=== PATIENT | female | born 2000 | race Caucasian/White ===

== ENCOUNTER 2020-08-14 12:33 | Outpatient (CLI) | payer OTHER ==
[2020-08-14 13:21] LABS: Basophils # (A) 0.1 k/uL (0-0.2); Basophils % (A) 1 %; Eosinophils # (A) 0.1 k/uL (0-0.7); Eosinophils % (A) 1 %; Lymphocytes # (A) 1.8 k/uL (1.0-4.8); Lymphocytes % (A) 14 %; MCH 31.4 pg (25.0-35.0); MCHC 34.1 g/dL (31.0-37.0); Mean Platelet Volume 7.3; Monocytes # (A) 0.6 k/uL (0-1.0); Monocytes % (A) 5 %; Neutrophils # (A) 10.5 k/uL (1.3-7.7); Neutrophils % (A) 79 %; Platelet Count 323 k/uL (150-450); Poikilocytosis Slight; RDW 14.7 % (11.5-15.5); WBC 13.3 k/uL (3.8-10.6)
[2020-08-14 13:29] LABS: Appearance,Urine Cloudy (Clear); Bacteria,Urine Rare /hpf; Bilirubin,Urine Negative (Negative); Blood,Urine Negative (Negative); Color,Urine Light Yellow; Glucose,Urine (UA) Negative (Negative); Ketones,Urine Negative (Negative); Leukocyte Esterase,Urine Large (Negative); Mucus,Urine Rare /hpf; Nitrite,Urine Negative (Negative); Protein,Urine Trace (Negative); RBC,Urine 3 /hpf (0-5); Specific Gravity,Urine 1.009 (1.001-1.035); Squamous Epithelial Cell,Urine 5 /hpf (0-4); Urobilinogen,Urine <2.0 mg/dL (<2.0); WBC,Urine 17 /hpf (0-5)
[2020-08-14 13:42] LABS: ALT 14 U/L (4-34); AST 21 U/L (14-36); African American GFR (CKD) >90 (>60 ml/min/1.73 sqM); Blood Urea Nitrogen 5 mg/dL (7-17); LDH 436 U/L (313-618); Non-African American GFR(CKD) >90 (>60 ml/min/1.73 sqM); Uric Acid 2.9 mg/dL (3.7-7.4)
[2020-08-14 13:44] LABS: Creatinine,Urine Random 49.1 mg/dL; Protein/Creatinine Ratio,Urine 0.754
--- NOTE | 2020-08-28 08:54 | P.MSEPDOC ---
Presenting Problems - Arrival Data Date of Arrival on Unit: 08/14/20 Time of Arrival on Unit: 12:40 Mode of Transport: Ambulatory Disposition - Disposition OB Disposition: Discharge to home Discharge Date: 08/14/20 Discharge Time: 14:30 I agree with the RN Medical Screening Exam: Yes Case reviewed; plan agreed upon as documented in EMR&OBIX.: Yes Diagnosis: GESTATIONAL HTN W/O SIGNIFICANT PROTEINURIA, THIRD TRIMESTER
== END 2020-08-14 14:20 | disposition home or self-care (01) ==
LOC: FBPOP 12:33
PROVIDERS: ATTEND Obstetrics & Gynecology
DX: O13.3 Gestational [pregnancy-induced] hypertension without significant proteinuria, third trimester (principal); Z3A.00 Weeks of gestation of pregnancy not specified
CPT/HCPCS: 59025; 82570; 84156; 82565; 83615; 84450; 84460; 84520; 84550; 85025; 81001; 87086; G0463; 99215

== ENCOUNTER 2020-10-02 16:59 | Outpatient (CLI) | payer OTHER ==
[2020-10-02 17:48] VITALS: BP 124/82; PULSE 120; RESP 18; TEMP 98.6
--- NOTE | 2020-10-07 17:24 | P.MSEPDOC ---
Presenting Problems - Arrival Data Date of Arrival on Unit: 10/02/20 Time of Arrival on Unit: 17:04 Mode of Transport: Ambulatory - Complaint OB-Reason for Admission/Chief Complaint: Decreased Movement Comment: Pt here complains of decreased movement since this am. Medical History - Information : 1 Para: 0 Term: 0 : 0 Abortions: Spontaneous or Elective: 0 Number of Living Children: 0 - Gestational Age Gestational Age by BHAKTI (wks/days): 36 Weeks and 6 Days - History Comment: Has been watching blood pressure in office Review of Systems - Review of Systems Constitutional: No problems Breast: No problems ENT: No problems Cardiovascular: No problems Respiratory: No problems Gastrointestinal: No problems Genitourinary: No problems Musculoskeletal: No problems Neurological: No problems Skin: No problems Vital Signs - Temperature Temperature: 98.6 F Temperature Source: Oral - Pulse Pulse Oximetery Pulse Rate: 120 Pulse Assessment Method: Automatic Cuff - Respirations Respiratory Rate: 18 Oxygen Delivery Method: Room Air - Blood Pressure Right Arm Blood Pressure: 124/82 Blood Pressure Mean: 96 Blood Pressure Source: Automatic Cuff Medical Screen Scoring (Pre) - Cervical Exam Dilation: Exam Deferred Effacement: Exam Deferred - Uterine Contractions Frequency: N/A Duration: N/A Intensity: N/A - Maternal Vital Signs Maternal Temperature: N/A Maternal Blood Pressure: N/A Signs of Preeclampsia: N/A Maternal Respirations: N/A - Maternal Trauma Maternal Trauma: N/A - Assessment - Baby A Heart Rate - NICHD Category: Category I (Normal) = 0 NST: Reactive - Total Score - Baby A Total Score - Baby A: 0 - Total Score - Baby B Total Score - Baby B: 0 - Total Score - Baby C Total Score - Baby C: 0 - Level of Risk - Baby A Level of Risk - Baby A: Low (0-5) - Level of Risk - Baby B Level of Risk - Baby B: Low (0-5) - Level of Risk - Baby C Level of Risk - Baby C: Low (0-5) - Pain Assessment Pain Scale Used: Numeric (1 - 10) Pain Intensity: 0 Physician Notification (Pre) - Physician Notified Physician Notified Date: 10/02/20 Physician Notified Time: 17:25 New Order Received: Yes - Notification Comment Comment: Discharge Home Disposition - Disposition OB Disposition: Discharge to home, Written follow up instructions reviewed Discharge Date: 10/02/20 Discharge Time: 17:48 I agree with the RN Medical Screening Exam: Yes Case reviewed; plan agreed upon as documented in EMR&OBIX.: Yes Diagnosis: DECREASED MOVEMENTS, THIRD TRIMESTER, FETUS 1
== END 2020-10-02 17:45 | disposition home or self-care (01) ==
LOC: FBPOP 16:59
PROVIDERS: ATTEND Obstetrics & Gynecology
DX: O36.8130 Decreased fetal movements, third trimester, not applicable or unspecified (principal); Z3A.36 36 weeks gestation of pregnancy
CPT/HCPCS: 59025; G0463; 99213

== ENCOUNTER 2020-10-21 05:49 | Inpatient (IN) | payer OTHER ==
[2020-10-17 13:30] VITALS: BMI 38.0
--- NOTE | 2020-10-20 21:16 | P.HPOB ---
History of Present Illness H&P Date: 10/20/20 Chief Complaint: macrosomia This is a 20 y.o. female, 1, para 0, with an estimated date of confinement of 10/23/2020, estimated gestational age of 39-5/7 weeks, who presents for primary section due to macrosomia on ultrasound with estimated weight greater than 90th percentile. She has good movement and irregular contractions. course has been otherwise uncomplicated. She transferred care to [facility] from [place] at 30 weeks. labs: Hemoglobin-13.2 Blood type-O+ Antibody screen-neg Hepatitis B surface antigen-neg RPR-NR HIV-NR Nkjlykibv-jlywhijm-15/2020, MORGAN 06/2020-neg GC-neg 1 hr. GTT-129 GBS-neg OB Hx: . [employer] Hx: Hx chlamydia treated earlier in . Social Hx: . Unemployed. Review of Systems Constitutional: Denies chills, Denies fever Eyes: denies blurred vision, denies pain Ears, nose, mouth and throat: Denies headache, Denies sore throat Cardiovascular: Denies chest pain, Denies shortness of breath Respiratory: Denies cough Gastrointestinal: Reports abdominal pain (irreg. contractions) Genitourinary: Reports pelvic pain, Reports Musculoskeletal: Reports low back pain Musculoskeletal: bilateral: ankle swelling Integumentary: Denies pruritus, Denies rash Neurological: Denies numbness, Denies weakness Psychiatric: Denies anxiety, Denies depression Past Medical History Past Medical History: GERD/Reflux History of Any Multi-Drug Resistant Organisms: None Reported Past Surgical History: No Surgical Hx Reported Additional Past Anesthesia/Blood Transfusion Reaction / Comment(s): no anesthesia hx Past Psychological History: No Psychological Hx Reported Smoking Status: Never smoker Past Alcohol Use History: None Reported Past Drug Use History: None Reported - Past Family History Mother Family Medical History: No Reported History Medications and Allergies Home Medications Medication Instructions Recorded Confirmed Type Pnv No.95/Ferrous Fum/Folic AC 1 each PO DAILY 08/14/20 10/17/20 History [ Multivitamin Tablet] Cetirizine HCl [Zyrtec] 10 mg PO DAILY PRN 10/17/20 10/17/20 History Allergies Allergy/AdvReac Type Severity Reaction Status Date / Time shellfish derived [Shellfish] Allergy Swelling Verified 10/21/20 06:48 Lip, Throat Itchy. Exam Osteopathic Statement: *. No significant issues noted on an osteopathic structural exam other than those noted in the History and Physical/Consult. HEENT: within normal limits Heart: regular rate and rhythm Lungs: clear to auscultation bilaterally Abdomen: , fundal height 42.5 cm heart tones: 140's by doppler Extremities: neg. Francine's Results Result Diagrams: 10/21/20 06:07 Assessment and Plan (1) 39 weeks gestation of Current Visit: No Status: Acute Code(s): Z3A.39 - 39 WEEKS GESTATION OF SNOMED Code(s): 99845365 (2) macrosomia Current Visit: No Status: Acute Code(s): O36.60X0 - MATERNAL CARE FOR EXCESS GROWTH, UNSP TRIMESTER, UNSP SNOMED Code(s): 24564737 Plan: Proceed with primary low transverse section. I have discussed the risks, benefits, and alternative therapies for the above- mentioned procedure and for both sedation/anesthesia as well as necessary blood products administration, if indicated, as they pertain to this patient. The patient has indicated her understanding and acceptance of the risks and procedures discussed.
[2020-10-21] MEDS ORDERED: CITRIC ACID-SODIUM CITRATE 15 ML CUP PO ONE (05:54)
[2020-10-21] MEDS ORDERED: LIDOCAINE 1% (10MG/ML) FOR IV START INTRADERMA PRN (05:54)
[2020-10-21] MEDS ORDERED: LORATADINE 10 MG TAB PO PRN (05:54)
[2020-10-21 06:22] LABS: Anisocytosis Slight; Basophils % (A) 0 %; Eosinophils # (A) 0.2 k/uL (0-0.7); Eosinophils % (A) 1 %; HCT 32.4 % (34.0-46.0); HGB 10.8 gm/dL (11.4-16.0); Hypochromasia Slight; Lymphocytes # (A) 1.7 k/uL (1.0-4.8); Lymphocytes % (A) 14 %; MCH 28.1 pg (25.0-35.0); MCHC 33.3 g/dL (31.0-37.0); MCV 84.4 fL (80.0-100.0); Mean Platelet Volume 7.8; Monocytes # (A) 0.6 k/uL (0-1.0); Monocytes % (A) 5 %; Neutrophils # (A) 9.8 k/uL (1.3-7.7); Neutrophils % (A) 79 %; Platelet Count 398 k/uL (150-450); Poikilocytosis Slight; RBC 3.84 m/uL (3.80-5.40); RDW 17.2 % (11.5-15.5); WBC 12.4 k/uL (3.8-10.6)
[2020-10-21] MEDS: LACTATED RINGERS 1,000 ML IV ONE ×2 (06:31→11:24)
[2020-10-21] MEDS ORDERED: KETOROLAC 15 MG/ML 1 ML VIAL ONE (07:56)
[2020-10-21] MEDS ORDERED: ONDANSETRON 4 MG/2 ML VIAL ONE (07:56)
[2020-10-21] MEDS ORDERED: MORPHINE SULFATE (PF) 0.3 MG/0.3 ML SYR ONE (07:56)
[2020-10-21] MEDS ORDERED: PHENYLEPHRINE-0.9% NACL SYG 1,000 MCG/10 ML SYRINGE ONE (07:56)
--- NOTE | 2020-10-21 08:52 | P.OP ---
Date of Procedure: 10/21/20 Preoperative Diagnosis: 1. Intrauterine at 39-5/7 weeks. 2. macrosomia. Postoperative Diagnosis: Same Procedure(s) Performed: Primary low transverse section Anesthesia: spinal (Duramorph) Surgeon: Cathy Mays Slagger #1: Walker Stephen Estimated Blood Loss (ml): 750 Pathology: none sent Condition: stable Disposition: floor Indications for Procedure: This is a 20-year-old female 1 para 0 at 39-5/7 weeks who presents for primary low transverse section due to macrosomia. I have discussed the risks, benefits, and alternative therapies for the above- mentioned procedure and for both sedation/anesthesia as well as necessary blood products administration, if indicated, as they pertain to this patient. The patient has indicated her understanding and acceptance of the risks and procedures discussed. Operative Findings: A viable female is noted in the vertex presentation with scores of 8 at 1 minute and 9 at 5 minutes and infant weight of 9 lbs. 5 oz. Normal uterus tubes and ovaries are noted. Description of Procedure: The patient is taken to the operating room where she is placed in the dorsal supine position with leftward tilt after spinal Duramorph anesthesia is given. She is prepped and draped in the normal sterile fashion. Skin was tested and found to be adequately anesthetized. A Pfannenstiel skin incision was made with a scalpel. A second knife was used to carry the incision down to the underlying layer of fascia. The fascia was nicked in the midline with a scalpel and then extended laterally bilaterally with Miller scissors. The anterior lip of the fascia was grasped with 2 Marko clamps and then dissected off the underlying rectus muscle in the midline with Miller scissors. The inferior aspect of the fa scial incision was grasped with 2 Marko clamps and dissected off the underlying rectus muscle and the midline with Miller scissors. Next the peritoneum layer was tented up with 2 hemostats and then entered sharply with the scalpel. The incision is extended superiorly and inferiorly with Metzenbaum scissors. Next a DeLee retractor is placed. The vesicouterine peritoneum is entered sharply with Metzenbaum scissors and extended laterally bilaterally with Metzenbaum scissors and then the bladder flap is pushed inferiorly. The lower uterine segment is incised in transverse fashion with the scalpel and then bluntly entered with a hemostat. Clear fluid is noted. The incision was then extended laterally bilaterally with 2 fingers. Next the infant's head is delivered through the incision. Nose and mouth are bulb suctioned. The remainder of the infant is easily delivered and placed on mother's abdomen. Cord is clamped and cut. is taken to warmer by nursing staff. Uterine fundus is gently massaged and placenta is delivered manually. Uterus is exteriorized and cleared of all clots and debris. Uterine incision is closed with 0 Vicryl suture in a running locked fashion. A second layer of 0 Vicryl suture is used in a running fashion for hemostasis. Once adequate hemostasis as assured, the vesicouterine peritoneum is reapproximated with 2-0 Vicryl suture in a running fashion. Shortly after repair of the uterus incision, it was noted there was some bleeding from the fimbriated end of the left fallopian tube. Cautery was used to cauterize the one blood vessel that was pumping. There was still noted to be oozing and therefore one stitch of 3-0 Vicryl suture was placed in interrupted stitch for hemostasis. Good hemostasis was noted at this point. Posterior cul-de-sac is suctioned of all clots and debris. Uterus is returned to the abdomen. Incision is noted to be hemostatic. The left fallopian tube was noted to be hemostatic. Peritoneal layer is closed with 0 Vicryl suture in a running fashion. Muscle layer is reapproximated with 0 Vicryl suture in interrupted fashion. Fascia layer is then closed with 0 PDS suture with 2 sutures meeting in the midline and the knots buried in either side and in the midline. The subcutaneous tissue was then closed with 2-0 Vicryl suture. Skin layer was then closed with rain. All sponge and needle counts are correct. The patient is taken to recovery room in stable condition.
[2020-10-21] MEDS ORDERED: OXYTOCIN 30 UNITS/500 ML NS 30 UNIT in SALINE 1 500ML.BAG IV SCH (09:00)
[2020-10-21] MEDS: LACTATED RINGERS 1,000 ML IV SCH ×2 (11:26→19:39)
[2020-10-21] MEDS ORDERED: diphenhydrAMINE 50 MG/ML 1 ML VIAL IVP PRN ×2 (12:34)
[2020-10-21] MEDS ORDERED: ONDANSETRON 4 MG/2 ML VIAL IVP PRN (12:34)
[2020-10-21] MEDS ORDERED: diphenhydrAMINE 50 MG CAP PO PRN (12:34)
[2020-10-21] MEDS ORDERED: ZOLPIDEM 5 MG TAB PO PRN (12:34)
[2020-10-21] MEDS ORDERED: diphenhydrAMINE 25 MG CAP PO PRN (12:34)
[2020-10-21] MEDS ORDERED: NALOXONE 0.4 MG/ML 1 ML VIAL IV PRN (12:34)
[2020-10-21] MEDS ORDERED: METOCLOPRAMIDE 5 MG/ML 2 ML VIAL IVP PRN (12:34)
[2020-10-21] MEDS: ACETAMINOPHEN TAB 500 MG TAB PO SCH ×2 (14:00→19:38)
[2020-10-21] MEDS: KETOROLAC 15 MG/ML 1 ML VIAL IVP SCH (17:55)
[2020-10-21] MEDS ORDERED: IBUPROFEN 600 MG TAB PO SCH (18:34)
[2020-10-21] MEDS: SENNOSIDES-DOCUSATE SODIUM 1 EACH TAB PO SCH (19:39)
[2020-10-22] MEDS: KETOROLAC 15 MG/ML 1 ML VIAL IVP SCH ×2 (00:55→06:43)
[2020-10-22] MEDS: ACETAMINOPHEN TAB 500 MG TAB PO SCH ×3 (02:07→18:30)
[2020-10-22] MEDS: LACTATED RINGERS 1,000 ML IV SCH ×3 (04:29→20:40)
--- NOTE | 2020-10-22 07:12 | P.PN ---
Progress Note - Text Progress Note Date: 10/22/20 Postoperative day 1 status post section under spinal anesthesia, and intrathecal morphine given for postoperative analgesia, patient doing well, there is no anesthesia related complications Patient had no headache, vital signs stable Assessment and plan = postop day 1 status post , doing well there is no anesthesia related complication
[2020-10-22] MEDS ORDERED: IBUPROFEN 200 MG TAB PO PRN (08:46)
[2020-10-22] MEDS ORDERED: HYDROcodone/APAP 7.5-325MG 1 EACH TAB PO PRN (08:47)
[2020-10-22] MEDS ORDERED: HYDROcodone/APAP 5-325MG 1 EACH TAB PO PRN (08:47)
--- NOTE | 2020-10-22 08:50 | P.PNOBGPC ---
Subjective - Subjective Principal diagnosis: Status post primary section postoperative day #1 Interval history: Patient is doing well. She is ambulating. She is not passing flatus or bowel movement yet. She is urinating without difficulty. Her pain is well controlled right now. She is tolerating liquid diet. Lochia has been minimal. She is breast-feeding. Patient reports: Reports appetite normal, Reports voiding normally, Reports pain well controlled, Reports ambulating normally : doing well, nursing well Objective - Vital Signs Latest vital signs: Vital Signs Temp Pulse Resp BP BP Pulse Ox 10/22/20 08:00 97.8 F 85 16 110/74 100 10/22/20 04:00 98.0 F 86 16 112/83 10/22/20 00:00 98.9 F 102 H 16 119/79 10/21/20 20:00 98.1 F 94 16 107/61 10/21/20 15:03 97.5 F L 102 H 17 129/76 98 10/21/20 12:18 98.1 F 113 H 16 117/75 10/21/20 10:55 81 16 109/55 97 10/21/20 10:29 97.3 F L 76 16 115/66 98 10/21/20 09:59 85 16 117/59 98 10/21/20 09:44 97.4 F L 83 16 109/59 98 10/21/20 09:29 85 16 122/56 98 10/21/20 09:13 97.1 F L 86 16 113/58 98 10/21/20 08:59 89 16 106/60 98 Intake and Output 10/21/20 10/22/20 10/22/20 22:59 06:59 14:59 Output Total 700 700 800 Balance -700 -700 -800 Output: Urine 700 700 800 Uretheral (Christopher) 700 700 - Exam Lungs: bilateral: normal Chest: Normal S1, Normal S2 Extremities: Present: normal Abdomen: Present: normal appearance, soft (Faint bowel sounds 4), distention (Slight). Absent: tenderness Incision: Present: normal, dry, intact. Absent: erythematous Uterus: Present: normal, firm. Absent: tenderness Assessment and Plan Assessment: Status post primary low transverse section postoperative day #1 (1) 39 weeks gestation of Current Visit: No Status: Acute Code(s): Z3A.39 - 39 WEEKS GESTATION OF SNOMED Code(s): 55482411 (2) macrosomia Current Visit: No Status: Acute Code(s): O36.60X0 - MATERNAL CARE FOR EXCESS GROWTH, UNSP TRIMESTER, UNSP SNOMED Code(s): 28003969 Plan: Continue with postoperative care today. Will advance diet as tolerated after flatus. Will switch to oral pain medications today. Patient is encouraged to ambulate and may shower.
[2020-10-22 09:05] LABS: Anisocytosis Slight; Basophils % (A) 0 %; Eosinophils # (A) 0.1 k/uL (0-0.7); Eosinophils % (A) 1 %; HCT 26.8 % (34.0-46.0); Hypochromasia Slight; Lymphocytes # (A) 1.1 k/uL (1.0-4.8); Lymphocytes % (A) 11 %; MCH 28.8 pg (25.0-35.0); MCV 84.7 fL (80.0-100.0); Mean Platelet Volume 7.8; Monocytes # (A) 0.6 k/uL (0-1.0); Monocytes % (A) 6 %; Neutrophils # (A) 8.4 k/uL (1.3-7.7); Neutrophils % (A) 81 %; Platelet Count 322 k/uL (150-450); Poikilocytosis Slight; RBC 3.17 m/uL (3.80-5.40); RDW 17.4 % (11.5-15.5); WBC 10.4 k/uL (3.8-10.6)
[2020-10-22 09:10] LABS: HGB 9.1 gm/dL (11.4-16.0)
[2020-10-22] MEDS: SENNOSIDES-DOCUSATE SODIUM 1 EACH TAB PO SCH ×2 (12:03→20:09)
[2020-10-23] MEDS: ACETAMINOPHEN TAB 500 MG TAB PO SCH ×2 (00:06→09:17)
[2020-10-23] MEDS ORDERED: IBUPROFEN 600 MG TAB PO PRN (03:04)
--- NOTE | 2020-10-23 08:55 | P.DS ---
Providers Date of admission: 10/21/20 05:49 Expected date of discharge: 10/23/20 Attending physician: Cathy Mays Primary care physician: Stated None - Discharge Diagnosis(es) (1) 39 weeks gestation of Current Visit: No Status: Acute (2) macrosomia Current Visit: No Status: Acute Hospital Course: This is a 20-year-old female 1 para 0 at 39-5/7 weeks who presented for scheduled primary low transverse section for macrosomia. She underwent the above-noted procedure on 10/21/2020 and delivered a viable female infant with scores of 8 at 1 minute and 9 at 5 minutes and infant weight of 9 lbs. 5 oz. Her postoperative and course have been uncomplicated. She is passing flatus and bowel movement and urinating without difficulty. Her lochia is minimal. She is breast-feeding. Vital signs are stable. Abdomen is soft with fundus firm and nontender. Incision is clean dry and intact with rain in place. Extremities show negative Homans. Impression is status post primary low transverse section postoperative day #2. Plan is to discharge home today. Routine instructions and postoperative instructions are given. She will be given a prescription for ibuprofen for pain control. She declines a need for any narcotics. She has a breast pump at home. She is advised to follow up in the office in approximately 2 weeks for a postoperative check and in 6 weeks for check. She is advised to call the office if she has any further questions or concerns prior to her appointment time. Procedures: Primary low transverse section on 10/21/2020 Patient Condition at Discharge: Stable Plan - Discharge Summary Discharge Rx Participant: Yes New Discharge Prescriptions: New Ibuprofen [Motrin] 600 mg PO Q6HR PRN #60 tab PRN Reason: Pain Continue Pnv No.95/Ferrous Fum/Folic AC [ Multivitamin Tablet] 1 each PO DAILY Cetirizine HCl [Zyrtec] 10 mg PO DAILY PRN PRN Reason: Allergy Symptoms Discharge Medication List Pnv No.95/Ferrous Fum/Folic AC [ Multivitamin Tablet] 1 each PO DAILY 08/14/20 [History] Cetirizine HCl [Zyrtec] 10 mg PO DAILY PRN 10/17/20 [History] Ibuprofen [Motrin] 600 mg PO Q6HR PRN #60 tab 10/23/20 [Rx] Follow up Appointment(s)/Referral(s): Cathy Mays DO [Doctor of Osteopathic Medicine] - 2 Weeks Activity/Diet/Wound Care/Special Instructions: Instructions 1. Do not begin any exercise program for 3 weeks. 2. Do not resume sexual relations for 3 weeks or longer if uncomfortable. 3. You may take tub baths or showers at any time. 4. You may use tampons if desired after 3 weeks. 5. Keep the area of episiotomy (stitches) clean and dry. 6. If you are not nursing, wear a good fitting, supportive bra during the day and limit fluid intake for at least 1 week to prevent breast engorgement. 7. Call the office, [phone], within the next week to make appointment for your 6 week checkup if it has not already been made. 8. Report any of the following occurrences to the doctor promptly: a. Heavy, excessive bleeding b. Chills, fever c. Burning or frequency of urination d. Pain or redness and breasts if nursing e. Increasing pain or swelling in episiotomy (stitches). In addition to the above instructions, the following additional should be followed: 1. No heavy lifting or straining (exercising) until after 6 week checkup. 2. Keep abdominal incision clean and dry: You may wear a dressing if more comfortable. 3. Make office appointment for 10 days after going home or as instructed by her doctor. Discharge Disposition: HOME SELF-CARE
[2020-10-23] MEDS: SENNOSIDES-DOCUSATE SODIUM 1 EACH TAB PO SCH (09:16)
[2020-10-23 09:39] VITALS: BP 130/85; PULSE 116; RESP 17; TEMP 97.8
== END 2020-10-23 11:05 | disposition home or self-care (01) | DRG 788 ==
LOC: 4FBP 05:49
PROVIDERS: ADMIT Obstetrics & Gynecology; ATTEND Obstetrics & Gynecology
PROC: 10D00Z1 Extraction of Products of Conception, Low, Open Approach (ICD-10-PCS; principal; 2020-10-21 08:00)
DX: O36.63X0 Maternal care for excessive fetal growth, third trimester, not applicable or unspecified (principal); O99.62 Diseases of the digestive system complicating childbirth; K21.9 Gastro-esophageal reflux disease without esophagitis; Z37.0 Single live birth; Z3A.39 39 weeks gestation of pregnancy; Z79.899 Other long term (current) drug therapy; Z98.818 Other dental procedure status
CPT/HCPCS: 85025; 86850; 86900; 86901

== ENCOUNTER 2020-10-26 00:27 | Emergency (ER) | payer OTHER ==
[2020-10-26] MEDS ORDERED: SODIUM CHLORIDE 0.9% 1,000 ML IV ONE (01:34)
[2020-10-26 01:57] LABS: Anisocytosis Slight; HCT 28.5 % (34.0-46.0); Hypochromasia Slight; MCH 27.2 pg (25.0-35.0); MCHC 31.4 g/dL (31.0-37.0); MCV 86.4 fL (80.0-100.0); Mean Platelet Volume 8.3; Platelet Count 524 k/uL (150-450); Poikilocytosis Slight; RDW 18.2 % (11.5-15.5); WBC 14.5 k/uL (3.8-10.6)
[2020-10-26 02:06] LABS: ALT 27 U/L (4-34); AST 55 U/L (14-36); African American GFR (CKD) >90 (>60 ml/min/1.73 sqM); Albumin 3.3 g/dL (3.5-5.0); Alkaline Phosphatase 199 U/L (38-126); Anion Gap 7 mmol/L; Blood Urea Nitrogen 8 mg/dL (7-17); Carbon Dioxide 20 mmol/L (22-30); Chloride 110 mmol/L (98-107); Glucose 97 mg/dL (74-99); LDH 1133 U/L (313-618); Magnesium 1.8 mg/dL (1.6-2.3); Non-African American GFR(CKD) >90 (>60 ml/min/1.73 sqM); Potassium 4.8 mmol/L (3.5-5.1); Sodium 137 mmol/L (137-145); Total Bilirubin 0.7 mg/dL (0.2-1.3); Total Protein 6.3 g/dL (6.3-8.2); Uric Acid 4.3 mg/dL (3.7-7.4)
[2020-10-26 02:09] LABS: Appearance,Urine Cloudy (Clear); Bacteria,Urine Rare /hpf; Bilirubin,Urine Negative (Negative); Blood,Urine Large (Negative); Color,Urine Light Yellow; Glucose,Urine (UA) Negative (Negative); Ketones,Urine Negative (Negative); Leukocyte Esterase,Urine Large (Negative); Mucus,Urine Rare /hpf; Nitrite,Urine Negative (Negative); PH, Urine 5.5 (5.0-8.0); Protein,Urine Trace (Negative); RBC,Urine >182 /hpf (0-5); Specific Gravity,Urine 1.005 (1.001-1.035); Squamous Epithelial Cell,Urine 3 /hpf (0-4); Urobilinogen,Urine <2.0 mg/dL (<2.0); WBC,Urine 136 /hpf (0-5)
[2020-10-26 02:27] LABS: Band Neutrophils % 1 %; Eosinophils # (M) 0.58 k/uL (0-0.7); Lymphocytes # (M) 1.31 k/uL (1.0-4.8); Monocytes # (M) 1.02 k/uL (0-1.0); Neutrophils % (M) 79 %; Nucleated Red Blood Cells 0 /100 WBC (0-0); Polychromasia Present; Total Cells Counted 100
--- NOTE | 2020-10-26 02:41 | XR ---
EXAM: XR Chest, 2 Views CLINICAL HISTORY: Edema TECHNIQUE: Frontal and lateral views of the chest. COMPARISON: No relevant prior studies available. FINDINGS: Lungs: Unremarkable. No infiltration, atelectasis or mass density. Pleural space: Unremarkable. No pneumothorax. No pleural fluid. Heart: Unremarkable. No cardiomegaly. Mediastinum: Unremarkable. Bones/joints: Unremarkable. No acute abnormalities. IMPRESSION: Negative chest x-rays.
[2020-10-26 03:14] VITALS: PULSE 104; RESP 16
--- NOTE | 2020-10-26 04:02 | ED ---
Recheck HPI - General Chief Complaint: Recheck/Abnormal Lab/Rx Stated Complaint: High blood pressure, post-op Time Seen by Provider: 10/26/20 01:23 Source: patient Mode of arrival: ambulatory Limitations: no limitations - History of Present Illness Initial Comments: 20-year-old female patient who is 4 days presents to the emergency department today for evaluation of elevated blood pressures and swelling to the lower extremities. She delivered her first baby via on 10/22/20. States that she woke from a nap this afternoon and had a headache her mother suggested she should check her blood pressures. States the blood pressures are around 130s systolic. States she has been having swelling to the legs for the last couple of weeks. States it has not improved at all since delivering. Denies any issues with blood pressure during her . She states that her incision is healing well denies any drainage. States she is having some vaginal bleeding and states his little heavier today. Denies any foul odor. Denies fever or ch ills. States her headache has resolved. She is eating and drinking without difficulty. Patient denies any recent rash, cough, shortness of breath, chest pain, abdominal pain, nausea, vomiting, diarrhea, constipation, back pain, numbness, tingling, dizziness, weakness, hematuria, dysuria, urinary urgency, urinary frequency, visual changes, or any other complaints. - Related Data Home Medications Medication Instructions Recorded Confirmed Pnv No.95/Ferrous Fum/Folic AC 1 each PO DAILY 08/14/20 10/17/20 [ Multivitamin Tablet] Cetirizine HCl [Zyrtec] 10 mg PO DAILY PRN 10/17/20 10/17/20 Previous Rx's Medication Instructions Recorded Ibuprofen [Motrin] 600 mg PO Q6HR PRN #60 tab 10/23/20 Allergies Allergy/AdvReac Type Severity Reaction Status Date / Time shellfish derived [Shellfish] Allergy Swelling Verified 10/26/20 01:19 Lip, Throat Itchy. Review of Systems ROS Statement: Those systems with pertinent positive or pertinent negative responses have been documented in the HPI. ROS Other: All systems not noted in ROS Statement are negative. Past Medical History Past Medical History: GERD/Reflux Additional Past Medical History / Comment(s): -LMP January 2020. History of Any Multi-Drug Resistant Organisms: None Reported Past Surgical History: Section Additional Past Surgical History / Comment(s): [place] teeth 2016 Past Anesthesia/Blood Transfusion Reactions: No Reported Reaction Additional Past Anesthesia/Blood Transfusion Reaction / Comment(s): no anesthesia hx Past Psychological History: No Psychological Hx Reported Smoking Status: Never smoker Past Alcohol Use History: None Reported Past Drug Use History: None Reported - Past Family History Mother Family Medical History: No Reported History General Exam Limitations: no limitations General appearance: alert, in no apparent distress, other (This is a well- developed, well-nourished adult female patient in no acute distress. Vital signs upon presentation are temperature 98.7F, pulse 128, respirations 22, blood pressure 139/83, pulse ox 98% on room air.) Eye exam: Present: normal appearance, PERRL, EOMI. Absent: scleral icterus, conjunctival injection, periorbital swelling ENT exam: Present: normal exam, normal oropharynx, mucous membranes moist Respiratory exam: Present: normal lung sounds bilaterally. Absent: respiratory distress, wheezes, rales, rhonchi, stridor Cardiovascular Exam: Present: normal rhythm, tachycardia, normal heart sounds. Absent: systolic murmur, diastolic murmur, rubs, gallop, clicks GI/Abdominal exam: Present: soft, normal bowel sounds, other (approximated lower abdominal incision. No surrounding erythema, no ). Absent: distended, tenderness, guarding, rebound, rigid Extremities exam: Present: full ROM, normal capillary refill, pedal edema (3+ pitting edema). Absent: tenderness, joint swelling, calf tenderness Neurological exam: Present: alert, oriented X3, CN II-XII intact Psychiatric exam: Present: normal affect, normal mood Skin exam: Present: warm, dry, intact, normal color. Absent: rash Course Vital Signs 10/26/20 10/26/20 10/26/20 01:16 03:07 04:03 Temperature 98.7 F 98.3 F 98.0 F Pulse Rate 128 H 104 H 104 H Respiratory 22 16 16 Rate Blood Pressure 139/83 120/82 117/80 O2 Sat by Pulse 98 99 98 Oximetry Medical Decision Making - Medical Decision Making 20-year-old female patient who is 4 days after delivering a healthy ago via presents to the emergency department today for concern for elevated blood pressures and lower extremity edema. Physical examination did reveal 3+ pitting edema to the lower extremities and feet. Lungs were clear to auscultation. She is neurologically intact with no focal deficits. Labs reviewed and did reveal elevated white blood cell count of 14.5. Hemoglobin is 9.0 but is stable from 10/23/2020. Uric acid is normal at 4.3. LDH is 1133. Urinalysis did have blood contamination will be sent for culture. Chest x-ray w as negative. EKG showed sinus tachycardia. Blood pressures in the department were within normal ranges. I did dicuss all findings with the patient. She will be discharged. Instructed to call OBGYN on Tuesday. Continue monitoring blood pressures. Return if she has any worsening symptoms or concerns. Case discussed with my attending Dr. Vogt. - Lab Data Result diagrams: 10/26/20 01:50 10/26/20 01:50 Lab Results 10/26/20 10/26/20 10/26/20 Range/Units 01:50 01:50 01:50 WBC 14.5 H (3.8-10.6) k/uL RBC 3.30 L (3.80-5.40) m/uL Hgb 9.0 L (11.4-16.0) gm/dL Hct 28.5 L (34.0-46.0) % MCV 86.4 (80.0-100.0) fL MCH 27.2 (25.0-35.0) pg MCHC 31.4 (31.0-37.0) g/dL RDW 18.2 H (11.5-15.5) % Plt Count 524 H (150-450) k/uL MPV 8.3 Neutrophils % Not Reportable Neutrophils % (Manual) 79 % Band Neuts % (Manual) 1 % Lymphocytes % Not Reportable Lymphocytes % (Manual) 9 % Monocytes % Not Reportable Monocytes % (Manual) 7 % Eosinophils % Not Reportable Eosinophils % (Manual) 4 % Basophils % Not Reportable Neutrophils # Not Reportable Neutrophils # (Manual) 11.60 H (1.3-7.7) k/uL Lymphocytes # Not Reportable Lymphocytes # (Manual) 1.31 (1.0-4.8) k/uL Monocytes # Not Reportable Monocytes # (Manual) 1.02 H (0-1.0) k/uL Eosinophils # Not Reportable Eosinophils # (Manual) 0.58 (0-0.7) k/uL Basophils # Not Reportable Nucleated RBCs 0 (0-0) /100 WBC Manual Slide Review Performed Polychromasia Present Hypochromasia Slight Poikilocytosis Slight Anisocytosis Slight Sodium 137 (137-145) mmol/L Potassium 4.8 (3.5-5.1) mmol/L Chloride 110 H (98-107) mmol/L Carbon Dioxide 20 L (22-30) mmol/L Anion Gap 7 mmol/L BUN 8 (7-17) mg/dL Creatinine 0.54 (0.52-1.04) mg/dL Est GFR (CKD-EPI)AfAm >90 (>60 ml/min/1.73 sqM) Est GFR (CKD-EPI)NonAf >90 (>60 ml/min/1.73 sqM) Glucose 97 (74-99) mg/dL Uric Acid 4.3 (3.7-7.4) mg/dL Calcium 9.0 (8.4-10.2) mg/dL Magnesium 1.8 (1.6-2.3) mg/dL Total Bilirubin 0.7 (0.2-1.3) mg/dL AST 55 H (14-36) U/L ALT 27 (4-34) U/L Alkaline Phosphatase 199 H (38-126) U/L Lactate Dehydrogenase 1133 H (313-618) U/L Total Protein 6.3 (6.3-8.2) g/dL Albumin 3.3 L (3.5-5.0) g/dL Urine Color Light Yellow Urine Appearance Cloudy H (Clear) Urine pH 5.5 (5.0-8.0) Ur Specific [place] 1.005 (1.001-1.035) Urine Protein Trace H (Negative) Urine Glucose (UA) Negative (Negative) Urine Ketones Negative (Negative) Urine Blood Large H (Negative) Urine Nitrite Negative (Negative) Urine Bilirubin Negative (Negative) Urine Urobilinogen <2.0 (<2.0) mg/dL Ur Leukocyte Esterase Large H (Negative) Urine RBC >182 H (0-5) /hpf Urine WBC 136 H (0-5) /hpf Urine WBC Clumps Few H (None) /hpf Ur Squamous Epith Cells 3 (0-4) /hpf Urine Bacteria Rare H (None) /hpf Urine Mucus Rare H (None) /hpf - Radiology Data Radiology results: report reviewed, image reviewed Two-view x-ray of the chest is obtained. Report was reviewed in its entirety. Impression by Dr. Fernandez shows negative chest x-rays. Disposition Clinical Impression: Lower extremity edema Disposition: HOME SELF-CARE Condition: Good Instructions (If sedation given, give patient instructions): Leg Edema (ED) Additional Instructions: Keep legs elevated. Follow up with your OBGYN on Tuesday. You can also call their office after hours and speak to the physician if you have specific concerns. Increase fluids. Rest. Return to the emergency department for any new, wo rsening, or concerning symptoms. Is patient prescribed a controlled substance at d/c from ED?: No Referrals: None,Stated [Primary Care Provider] - 1-2 days Time of Disposition: 04:01
[2020-10-26 04:14] VITALS: BP 117/80; TEMP 98
== END 2020-10-26 04:22 | disposition home or self-care (01) ==
LOC: EC 00:27
DX: R60.0 Localized edema (principal); Z79.1 Long term (current) use of non-steroidal anti-inflammatories (NSAID); K21.9 Gastro-esophageal reflux disease without esophagitis
CPT/HCPCS: 36415; 71046; 80053; 81001; 83615; 83735; 84550; 85025; 87086; 93005; 99284